=== PATIENT | male | born 1960 | race Caucasian/White ===

== ENCOUNTER 2016-11-16 21:44 | Emergency (ER) | payer MEDICAID ==
[2016-11-16] MEDS ORDERED: HYDROmorphone 1 MG/ML SYRINGE IM STA (22:14)
[2016-11-16] MEDS ORDERED: CYCLOBENZAPRINE 10 MG TABLET PO STA (22:14)
[2016-11-16] MEDS ORDERED: CYCLOBENZAPRINE 10 MG TABLET PO ONE (22:17)
[2016-11-16] MEDS ORDERED: HYDROmorphone 1 MG/ML SYRINGE ONE (22:17)
[2016-11-16] MEDS ORDERED: oxyCODONE/ACET 5/325 Prepack 4 PO STA (23:07)
[2016-11-16] MEDS ORDERED: oxyCODONE/ACET 5/325 Prepack 4 PO ONE (23:11)
== END 2016-11-16 23:19 | disposition home or self-care (01) ==
DX: M54.6 Pain in thoracic spine (principal); R20.0 Anesthesia of skin; E11.9 Type 2 diabetes mellitus without complications; Z79.84 Long term (current) use of oral hypoglycemic drugs
CPT/HCPCS: 71020; 96372; 99283; A9270; J1170

== ENCOUNTER 2017-06-27 12:16 | Emergency (ER) | payer MEDICAID ==
[2017-06-27 12:31] VITALS: BP 142/81
[2017-06-27 12:49] LABS: RAPID STREP SCREEN REAGENT QC YELLOW (YELLOW)
--- NOTE | 2017-06-27 13:09 | ED Physician Documentation ---
PD HPI URI - Stated complaint Stated Complaint: SORE THROAT/FEVER/MATOS - Chief complaint Chief Complaint: Heent - History obtained from History obtained from: Patient - History of Present Illness Timing - onset: How many days ago (3) Timing duration: Days Timing details: Abrupt onset, Still present Associated symptoms: Chills, Nasal congestion, Dry cough. No: Fever, Sore throat, Hemoptysis, Dyspnea, NVD Contributing factors: Sick contact (others at work with similar). No: Travel, Immunocompromised, Unimmunized Similar symptoms before: Has not had sx before Recently seen: Not recently seen Review of Systems Constitutional: reports: Chills, Myalgias. denies: Fever Nose: reports: Congestion Cardiac: denies: Chest pain / pressure Respiratory: reports: Cough. denies: Wheezing GI: denies: Nausea, Vomiting, Diarrhea Skin: denies: Rash PD PAST MEDICAL HISTORY - Past Medical History Past Medical History: Yes Cardiovascular: None Respiratory: None Neuro: None Endocrine/Autoimmune: Type 2 diabetes GI: None : None HEENT: Other Psych: None Musculoskeletal: Chronic back pain Derm: None - Past Surgical History Past Surgical History: Yes Ortho: Other HEENT: Tonsil/Adenoidectomy - Present Medications Home Medications: Ambulatory Orders Medication Instructions Recorded Confirmed Fluticasone [Flonase] 2 - 3 spray PO DAILY 03/12/14 06/27/17 Metformin HCl 1,000 mg PO BID 03/12/14 06/27/17 Buprenorphine HCl/Naloxone HCl 1 tab PO TID 06/27/17 06/27/17 [Suboxone 8 mg-2 mg Sl Film] Ketoconazole 1 tab TOP Q3D 06/27/17 06/27/17 LORazepam [Ativan] 1 tab PO PRN PRN 06/27/17 06/27/17 Lidocaine 1 applic TOP Q3H 06/27/17 06/27/17 Tamsulosin [Flomax] 1 cap PO DAILY 06/27/17 06/27/17 tiZANidine [Zanaflex] 1 tab PO Q8H 06/27/17 06/27/17 - Allergies Allergies/Adverse Reactions: Allergies Allergy/AdvReac Type Severity Reaction Status Date / Time NSAIDS (Non-Steroidal AdvReac Mild Unknown Verified 06/27/17 12:35 Anti-Inflamma - Social History Does the pt smoke?: No Smoking Status: Never smoker Does the pt drink ETOH?: No Does the pt have substance abuse?: No - Immunizations Immunizations are current?: Yes - POLST Patient has POLST: No PD ED PE NORMAL - Vitals Vital signs reviewed: Yes - General General: Alert and oriented X 3, No acute distress, Well developed/nourished - HEENT HEENT: Ears normal, Pharynx benign - Neck Neck: Supple, no meningeal sign, No adenopathy - Cardiac Cardiac: RRR, No murmur - Respiratory Respiratory: Clear bilaterally - Abdomen Abdomen: Soft, Non tender - Derm Derm: Normal color, Warm and dry, No rash - Neuro Neuro: Alert and oriented X 3, No motor deficit, Normal speech Results - Vitals Vitals: Vital Signs - 24 hr 06/27/17 12:30 Temperature 37.0 C Heart Rate 111 H Respiratory 16 Rate Blood Pressure 142/81 H O2 Saturation 97 Oxygen O2 Source Room air - Labs Labs: Microbiology 06/27/17 12:35 Group A Strep Throat Culture - Preliminary Throat MIXED OROPHARYNGEAL KRYSTINA PRESENT. NO BETA STREP PRESENT IN CULTURE. Laboratory Tests 06/27/17 12:35 Group A Strep Rapid Negative Departure - Departure Disposition: 01 Home, Self Care Clinical Impression: Upper respiratory infection Qualifiers: URI type: unspecified URI Qualified Code(s): J06.9 - Acute upper respiratory infection, unspecified Condition: Stable Record reviewed to determine appropriate education?: Yes Instructions: ED Upper Resp Infec No Abx Tx Comments: Drink lots of fluids. Tylenol or ibuprofen if needed for fevers and pains. Cough medicine is mediocre but it is better than nothing. Presumably this would be illness for 5 or 6 days. Your strep test is negative. Discharge Date/Time: 06/27/17 13:43
== END 2017-06-27 13:43 | disposition home or self-care (01) ==
LOC: ED 12:16
DX: J06.9 Acute upper respiratory infection, unspecified (principal); E11.9 Type 2 diabetes mellitus without complications
CPT/HCPCS: 87070; 87430; 99283

== ENCOUNTER 2018-01-21 14:02 | Emergency (ER) | payer MEDICAID ==
--- NOTE | 2018-01-21 14:48 | ED Physician Documentation ---
PD HPI CHEST PAIN - Stated complaint Stated Complaint: CHEST PX - Chief complaint Chief Complaint: Cardiac - History obtained from History obtained from: Patient, Family - History of Present Illness Timing - onset: Other (This is a 57-year-old gentleman who for the last 3 days has had brief sharp left anterior chest wall pain, Nonradiating. It seems to come in cycles, lasting 15 seconds at a time and he will have several episodes over a several hour period. Sometimes they are with exertion, sometimes at rest. They never wake him up from sleep. He is briefly short of breath when he has it. There is no associated nausea, back pain, pedal edema. He has never had a stress test.) Review of Systems Constitutional: reports: Reviewed and negative Throat: denies: Dental pain / toothache, Sore throat Cardiac: denies: Pedal edema, Calf pain Respiratory: denies: Hemoptysis, Wheezing GI: denies: Abdominal Pain, Nausea, Vomiting PD PAST MEDICAL HISTORY - Past Medical History Cardiovascular: None Respiratory: None Endocrine/Autoimmune: Type 2 diabetes GI: None : None HEENT: Chronic sinusitis, Other Psych: None Musculoskeletal: Chronic back pain Derm: None Other Past Medical History: fibromyalgia - Past Surgical History Past Surgical History: Yes Ortho: Other HEENT: Tonsil/Adenoidectomy - Present Medications Home Medications: Ambulatory Orders Medication Instructions Recorded Confirmed Fluticasone [Flonase] 2 - 3 spray PO DAILY 03/12/14 06/27/17 Metformin HCl 1,000 mg PO BID 03/12/14 06/27/17 Buprenorphine HCl/Naloxone HCl 1 tab PO TID 06/27/17 06/27/17 [Suboxone 8 mg-2 mg Sl Film] Ketoconazole 1 tab TOP Q3D 06/27/17 06/27/17 LORazepam [Ativan] 1 tab PO PRN PRN 06/27/17 06/27/17 Lidocaine 1 applic TOP Q3H 06/27/17 06/27/17 Tamsulosin [Flomax] 1 cap PO DAILY 06/27/17 06/27/17 tiZANidine [Zanaflex] 1 tab PO Q8H 06/27/17 06/27/17 - Allergies Allergies/Adverse Reactions: Allergies Allergy/AdvReac Type Severity Reaction Status Date / Time NSAIDS (Non-Steroidal AdvReac Mild Unknown Verified 06/27/17 12:35 Anti-Inflamma - Social History Does the pt smoke?: No Smoking Status: Never smoker Does the pt drink ETOH?: No Does the pt have substance abuse?: No - Immunizations Immunizations are current?: Yes - POLST Patient has POLST: No PD ED PE NORMAL - Vitals Vital signs reviewed: Yes - General General: Alert and oriented X 3, No acute distress - Neck Neck: Supple, no meningeal sign, No bony TTP - Cardiac Cardiac: RRR, No murmur - Respiratory Respiratory: No respiratory distress, Clear bilaterally - Abdomen Abdomen: Non tender - Neuro Neuro: Alert and oriented X 3, Normal speech Results - Vitals Vitals: Vital Signs - 24 hr 01/21/18 14:06 Temperature 36.6 C Heart Rate 80 Respiratory 16 Rate Blood Pressure 148/72 H O2 Saturation 95 Oxygen O2 Source Room air - EKG (time done) 1412 Rate: Rate (enter#) (85) Rhythm: NSR Collison: Normal Intervals: Normal PA QRS: Normal Ischemia: Normal ST segments Computer interpretation: Agree with computer - Labs Labs: Laboratory Tests 01/21/18 01/21/18 01/21/18 14:54 14:54 14:54 WBC 8.6 RBC 4.72 Hgb 14.6 Hct 43.2 MCV 91.4 MCH 30.9 MCHC 33.8 RDW 13.2 Plt Count 337 MPV 7.0 L Neut # (Auto) 4.8 Lymph # (Auto) 2.8 Rains # (Auto) 0.8 Eos # (Auto) 0.1 Baso # (Auto) 0.1 Absolute Nucleated RBC 0.00 Nucleated RBC % 0.0 Sodium 137 Potassium 4.1 Chloride 101 Carbon Dioxide 29 Anion Gap 7.0 BUN 22 H Creatinine 0.7 Estimated GFR (MDRD) 115 Glucose 106 H Calcium 9.2 Total Bilirubin 0.5 AST 29 ALT 38 Alkaline Phosphatase 71 Troponin I < 0.04 Total Protein 7.5 Albumin 3.8 Globulin 3.7 Albumin/Globulin Ratio 1.0 Lipase 24 - Rads (name of study) 2v chest Radiology: EMP read contemporaneously (NAD) PD MEDICAL DECISION MAKING - ED course ED course: This is a 57-year-old gentleman with very atypical episodic chest pain, nonexertional and pretty fleeting, lasting 15 seconds at a time. His EKG is completely nonischemic, he is pain-free here, troponin after 3 days of symptoms is undetectable. Given that he is pain-free I do not think serial troponins are in order. - Sepsis Event Vital Signs: Vital Signs - 24 hr 01/21/18 14:06 Temperature 36.6 C Heart Rate 80 Respiratory 16 Rate Blood Pressure 148/72 H O2 Saturation 95 Oxygen O2 Source Room air Departure - Departure Disposition: Home, Self Care Clinical Impression: Chest pain Qualifiers: Chest pain type: unspecified Qualified Code(s): R07.9 - Chest pain, unspecified Condition: Good Record reviewed to determine appropriate education?: Yes Instructions: ED Chest Pain NonCardiac Comments: If you have longer episodes of pain, especially anything longer than 45 seconds to a minute please return for reevaluation. Otherwise please follow-up with your doctor, next available appointment. Call today for an appointment.
[2018-01-21 15:08] LABS: BASOPHILS # (AUTO) 0.1 10^3/uL (0.0-0.1); BASOPHILS % (AUTO) 0.8 %; EOSINOPHILS # (AUTO) 0.1 10^3/uL (0.0-0.7); EOSINOPHILS % (AUTO) 1.5 %; HGB - HEMOGLOBIN 14.6 g/dL (14.0-18.0); LYMPHOCYTES # (AUTO) 2.8 10^3/uL (1.5-3.5); LYMPHOCYTES % (AUTO) 32.5 %; MEAN CORPUSCULAR HEMOGLOBIN 30.9 pg (27.0-31.0); MEAN CORPUSCULAR HGB CONC 33.8 g/dL (32.0-36.0); MEAN CORPUSCULAR VOLUME 91.4 fL (80.0-94.0); MONOCYTES # (AUTO) 0.8 10^3/uL (0.0-1.0); NEUTROPHILS # (AUTO) 4.8 10^3/uL (1.5-6.6); NEUTROPHILS % (AUTO) 56.2 %; PLT - PLATELET COUNT 337 10^3/uL (130-450); RED BLOOD COUNT 4.72 10^6/uL (4.70-6.10); RED CELL DISTRIBUTION WIDTH 13.2 % (12.0-15.0); WHITE BLOOD COUNT 8.6 x10^3/uL (4.8-10.8)
[2018-01-21 15:20] LABS: ALBUMIN 3.8 g/dL (3.2-5.5); BILIRUBIN,TOTAL 0.5 mg/dL (0.2-1.0); CALCIUM 9.2 mg/dL (8.5-10.3); CREATININE 0.7 mg/dL (0.6-1.2); TOTAL PROTEIN 7.5 g/dL (6.7-8.2)
--- NOTE | 2018-01-21 16:13 | XRAY Report ---
Procedure Date: 01/21/2018 Accession Number: [id number] / [id number] Procedure: XR - Chest 2 View X-Ray CPT Code: 74900 FULL RESULT: EXAM: CHEST RADIOGRAPHY EXAM DATE: 01/21/2018 03:40 PM. CLINICAL HISTORY: Chest pain. COMPARISON: 11/16/2016. TECHNIQUE: 2 views. FINDINGS: Lungs/Pleura: No focal opacities evident. No pleural effusion. No pneumothorax. Normal volumes. Mediastinum: Heart and mediastinal contours are unremarkable. Other: No compression fractures. IMPRESSION: Normal 2-view chest radiography. [facility]
[2018-01-21 16:25] VITALS: BP 155/81
== END 2018-01-21 16:29 | disposition home or self-care (01) ==
LOC: ED 14:02
DX: R07.9 Chest pain, unspecified (principal); E11.9 Type 2 diabetes mellitus without complications; Z79.84 Long term (current) use of oral hypoglycemic drugs; M79.7 Fibromyalgia
CPT/HCPCS: 36415; 71046; 80053; 83690; 84484; 85025; 93005; 99283; 99284